=== PATIENT | male | born 1960 | race Hispanic/Latino ===

== ENCOUNTER 2022-07-27 20:16 | Emergency (ER) | payer OTHER ==
[~2022-07-27] VITALS: Ht 162.6 cm; Wt 74.4 kg
[2022-07-27 22:16] LABS: APPEARANCE,URINE CLEAR (CLEAR); BILIRUBIN,URINE NEGATIVE (NEGATIVE); COLOR,URINE LIGHT-YELLOW (YELLOW); GLUCOSE, URINE (UA) NEGATIVE (NEGATIVE); KETONES,URINE NEGATIVE (NEGATIVE); LEUKOCYTE ESTERASE ,URINE NEGATIVE Leu/uL (NEGATIVE); NITRATE,URINE NEGATIVE (NEGATIVE); OCCULT BLOOD,URINE LARGE (NEGATIVE); PH,URINE 6.5 (5.0-8.0); PROTEIN,URINE NEGATIVE (NEGATIVE); UROBILINOGEN,URINE 0.2 mg/dL (0.2-1.0)
[2022-07-27 22:20] LABS: BACTERIA,URINE RARE /HPF (None Seen); RBC,URINE TNTC /HPF (0-1)
[2022-07-27 22:32] LABS: BASOPHILS % (AUTO) 0.5 % (0.0-5.0); EOSINOPHILS % (AUTO) 3.5 % (0.0-8.0); HEMATOCRIT 42.5 % (42-54); LYMPHOCYTES % (AUTO) 36.3 % (21.0-51.0); MEAN CORPUSCULAR HEMOGLOBIN 29.9 pg (27.0-33.0); MEAN CORPUSCULAR HGB CONC 33.2 g/dL (32.0-36.0); MONOCYTES % (AUTO) 7.7 % (3.0-13.0); NEUTROPHILS % (AUTO) 51.6 % (40.0-77.0); PLATELET COUNT (AUTO) 313 K/uL (130-400); RED BLOOD CELL COUNT(AUTO) 4.72 MIL/uL (4.50-6.20); RED CELL DISTRIBUTION WIDTH 13.4 % (11.0-15.5); WHITE BLOOD COUNT (AUTO) 9.6 K/uL (4.8-10.8)
[2022-07-27 22:39] LABS: CREATININE 0.7 mg/dL (0.5-1.5); POTASSIUM 4.2 mmol/L (3.5-5.1)
[2022-07-28] MEDS ORDERED: TAMSULOSIN HCL 0.4 MG CAP.ER.24H PO ONE
[2022-07-28] MEDS ORDERED: METOCLOPRAMIDE 10 MG/2 ML VIAL IVP ONE
[2022-07-28] MEDS ORDERED: 0.9%NACL 1000ML 1,000 ML IV ONE
[2022-07-28] MEDS ORDERED: FAMOTIDINE 20MG VIAL IV ONE
[2022-07-28] MEDS ORDERED: KETOROLAC 30MG VIAL (30MG/ML) IVP ONE
[2022-07-28] MEDS ORDERED: TAMS-1 PO (02:46)
[2022-07-28 02:58] VITALS: BP 143/76
== END 2022-07-28 02:59 | disposition home or self-care (01) ==
LOC: EDH 20:16
DX: R31.9 Hematuria, unspecified (principal); K57.30 Diverticulosis of large intestine without perforation or abscess without bleeding; E11.9 Type 2 diabetes mellitus without complications; I10 Essential (primary) hypertension; E78.00 Pure hypercholesterolemia, unspecified; F17.200 Nicotine dependence, unspecified, uncomplicated; Z79.899 Other long term (current) drug therapy
CPT/HCPCS: 99285; 74176; 80048; 85025; 87088; 84153; 81001; 36415; 96374; 96375; J3490; J7030; J1885; J2765

== ENCOUNTER 2022-08-24 08:42 | Day surgery (SDC) | payer OTHER ==
[~2022-08-24 08:42] MED LIST: TAMS-1 PO
[2022-08-24] MEDS ORDERED: 0.9%NACL 1000ML 1,000 ML IV ONE (10:34)
[2022-08-24 10:35] VITALS: BP 149/92; PULSE 85; RESP 20
[2022-08-24] MEDS ORDERED: ISOS30TA92 PO (10:45)
[2022-08-24] MEDS ORDERED: BACL10TA PO (10:45)
[2022-08-24] MEDS ORDERED: METF-446 PO (10:45)
[2022-08-24] MEDS ORDERED: GABA-533 PO (10:45)
[2022-08-24] MEDS ORDERED: HYDR-4068 PO (10:45)
[2022-08-24] MEDS ORDERED: HYDR25TA PO (10:45)
[2022-08-24] MEDS ORDERED: GEMF600T89 PO (10:45)
[2022-08-24] MEDS ORDERED: TRAM100T40 PO (10:45)
[2022-08-24] MEDS ORDERED: METO10TA41 PO (10:45)
[2022-08-24] MEDS ORDERED: PANT40TA54 PO (10:45)
[2022-08-24] MEDS ORDERED: INSLAN SQ (10:45)
[2022-08-24] MEDS ORDERED: LISI40TA9 PO (10:45)
[2022-08-24] MEDS ORDERED: GLIP10TA9 PO (10:45)
[2022-08-24] MEDS ORDERED: METO25TA6 PO (10:45)
[2022-08-24] MEDS ORDERED: PRAV80TA21 PO (10:45)
[2022-08-24] MEDS ORDERED: PIOG30TA10 PO (10:45)
[2022-08-24] MEDS ORDERED: MIDAZOLAM HCL 1 MG/ML 2ML VIAL ONE (11:40)
[2022-08-24] MEDS ORDERED: PROPOFOL 10 MG/ML 20ML VIAL IV ONE (12:55)
[2022-08-24] MEDS ORDERED: LIDOCAINE PF 100MG/5ML (2%) SYRINGE 5ML ONE (12:55)
[2022-08-24 13:15] VITALS: BP 112/69; PULSE 79; RESP 17
[2022-08-24 13:25] VITALS: BP 109/69; PULSE 83; RESP 16
[2022-08-24 13:35] VITALS: BP 121/78; PULSE 83; RESP 17
[2022-08-24 13:45] VITALS: BP 102/68; PULSE 94; RESP 17
[2022-08-24 13:55] VITALS: BP 117/77; PULSE 87; RESP 17
== END 2022-08-24 14:00 | disposition home or self-care (01) ==
LOC: DAH 08:42
PROVIDERS: ATTEND Internal Medicine Gastroenterology
DX: Z12.11 Encounter for screening for malignant neoplasm of colon (principal); Z20.822 Contact with and (suspected) exposure to COVID-19; I10 Essential (primary) hypertension; E78.5 Hyperlipidemia, unspecified; K21.9 Gastro-esophageal reflux disease without esophagitis; E11.9 Type 2 diabetes mellitus without complications; Z87.891 Personal history of nicotine dependence; Z82.49 Family history of ischemic heart disease and other diseases of the circulatory system; Z83.3 Family history of diabetes mellitus; Z83.438 Family history of other disorder of lipoprotein metabolism and other lipidemia; Z79.899 Other long term (current) drug therapy; Z86.010 Personal history of colon polyps; Z79.01 Long term (current) use of anticoagulants
CPT/HCPCS: 82948 ×2; 87635; J7030 ×2; J2001; J2250; J2704; A4620; G0105; A4215 ×2; A4223; A7002; A4222; A4221; A4663; A4606; 45378